=== PATIENT | female | born 1960 | race Caucasian/White ===

== ENCOUNTER 2016-08-08 14:38 | Emergency (ER) ==
[2016-08-08 14:47] VITALS: BP 146/87
--- NOTE | 2016-08-08 15:21 | PROVIDER DOCUMENTATION ---
HPI-EENT General - General Chief Complaint: Toothache Stated Complaint: TOOTHACHE Time Seen by Provider: 08/08/16 15:12 Source: patient Home Medications: Home Medication List Medication Instructions Recorded Confirmed Last Taken Type Acetaminophen with Codeine 1 each PO Q4H PRN PRN #10 tablet 08/08/16 Unknown Rx [Tylenol with Codeine #3] Amoxicillin [Amoxil] 500 mg PO BID #20 capsule 08/08/16 Unknown Rx - History of Present Illness-EENT General Nature of Presenting Problem: 56 y/o WF c/o right lower dental pain. A few years ago she cracked the tooth, not the tooth has fallen off, and over the past two days, caused much more severe pain. Denies difficulty breathing, difficulty swallowing. Denies fevers or chills, denies purulent drainage. patient tried getting in touch with the dentist several times to set up an appointment and they were either full or closed. Denies mucosal swelling or throat swelling Review of Systems - Adult - REVIEW OF SYSTEMS - ADULT Constitutional: reports: no symptoms reported. denies: chills, fever, fatique, night sweats Eyes: reports: no symptoms reported. denies: blurred vision, double vision, eye pain Ears, Nose, Mouth & Throat: reports: see HPI, throat pain. denies: ear pain, nose pain Cardiovascular: reports: no symptoms reported. denies: chest pain Respiratory: reports: no symptoms reported. denies: cough, shortness of breath , wheezing Gastrointestinal: reports: no symptoms reported Genitourinary: reports: no symptoms reported Musculoskeletal: reports: no symptoms reported. denies: muscle aches Integumentary: reports: no symptoms reported. denies: rash Neurological: reports: no symptoms reported. denies: headache/migraines Psychiatric: reports: no symptoms reported Endocrine: reports: no symptoms reported Hematologic/Lymphatic: reports: no symptoms reported Allergic/Immunologic: reports: no symptoms reported All Other Systems: Reviewed and Negative Past History - Adult - PAST MEDICAL HISTORY-ADULT Review of Records: reports: Old Records Reviewed, Nursing Assessment Review, Medications Reviewed, Social history reviewed & non-contributory. Major Childhood Illnesses: reports: denies history Cardiovascular: reports: denies history Respiratory: reports: denies history Gastrointestinal: reports: denies history Obstetrical/Gynecological: reports: denies history Genitourinary: reports: denies history Musculoskeletal: reports: denies history Neurological: reports: denies history Endocrine/Immune: reports: denies history Other Conditions: reports: denies history - PRIOR SURGERIES/PROCEDURES Surgical/Procedure History: reports: reviewed, not pertinent - FAMILY HISTORY Family History: reviewed, not pertinent - SOCIAL HISTORY Smoking: denies Substance Use: none/never Alcohol Use Frequency: never Physical Exam- EENT - Physical Exam EENT Initial Vital Signs Reviewed: Yes General Appearance: appears well, alert, no apparent distress Eye Exam: bilateral eye: normal inspection, PERRL, EOMI Ear Exam: bilateral ear: auricle normal, canal normal, TM normal Nasal Exam: normal inspection Throat Exam: normal mouth inspection, dental tenderness Mouth,Throat: 1 - broken tooth, infection Neck: non-tender, full range of motion, supple, normal inspection. negative: lymphadenopathy Respiratory: chest non-tender, lungs clear, normal breath sounds, no pleuratic chest pain, no respiratory distress, no accessory muscle use. negative: respiratory distress, decreased breath sounds, accessory muscle use, crackles, rales, rhonchi, wheezing Cardiovascular: normal peripheral pulses, regular rate, rhythm Extremity: normal gait Integumentary: normal color, normal turgor, warm/dry Neurologic: grossly normal, no motor/sensory deficits Psych/Mental Status: normal mood/affect, normal thought content, normal thought process, oriented x 3 Progress - PLAN OF CARE/RESULTS Progress/Plan/Lab Results: Vital Signs Temp Pulse Resp BP Pulse Ox 08/08/16 14:42 98.6 F 79 20 146/87 100 Acetaminophen with Codeine [Tylenol with Codeine #3] 1 each PO Q4H PRN PRN #10 tablet 08/08/16 Amoxicillin [Amoxil] 500 mg PO BID #20 capsule 08/08/16 Departure - Departure Time of Disposition Order: 15:20 DIAGNOSIS: Dental infection Disposition: HOME 01 Certified Medical Emergency: Emergent Condition: Stable Additional Instructions: Follow up with your dentist tomorrow ED Follow Up Instructions: You have been treated by a care provider in the Emergency Department. These instructions are being provided to you so you can have an understanding of how to care for yourself upon discharge. Upon discharge from the Emergency Department, you are responsible for making arrangements for follow-up care by a physician of your choice. Take all prescribed medications as directed. Return to the Emergency Department immediately for any new or worsening symptoms. You may call the Physician Referral phone number at [phone] to obtain a list of Physicians who are taking new patients. Prescriptions: Amoxicillin [Amoxil] 500 mg PO BID #20 capsule Acetaminophen with Codeine [Tylenol with Codeine #3] 1 each PO Q4H PRN PRN #10 tablet PRN Reason: Pain Referrals: None,PCP [Primary Care Provider] - Attestation - Physician/ JAMAL Attestation Patient care was provided by Advanced Practice Provider:: Yes Advanced Practice Provider:: Hilary Lopez Advanced Practice Provider documentation review:: The Mid-level provider documentation, treatment plan and medical decision making was reviewed by the physician who agrees with all treatment and medical decision making by the MLP.
== END 2016-08-08 15:51 | disposition home or self-care (01) ==
LOC: ED 14:38
DX: K04.7 Periapical abscess without sinus (principal); S02.5XXA Fracture of tooth (traumatic), initial encounter for closed fracture; K08.89 Other specified disorders of teeth and supporting structures; J02.9 Acute pharyngitis, unspecified